=== PATIENT | male | born 1970 | race Caucasian/White ===

== ENCOUNTER 2023-01-06 14:06 | Outpatient (CLI) | payer BC, SELFPAY | END 2023-01-06 14:07 | disposition home or self-care (01) | PROVIDERS: PCP Family Medicine; Visit Provider Family Medicine | DX: E78.5 Hyperlipidemia, unspecified (principal); E66.9 Obesity, unspecified; M54.9 Dorsalgia, unspecified; Z13.1 Encounter for screening for diabetes mellitus; Z12.5 Encounter for screening for malignant neoplasm of prostate | CPT/HCPCS: 80048; 80061; 84153 ==

== ENCOUNTER 2023-01-13 14:08 | Outpatient (CLI) | payer BC, SELFPAY | END 2023-01-13 14:09 | disposition home or self-care (01) | PROVIDERS: PCP Family Medicine; Referring Provider Family Medicine; Visit Provider Family Medicine | DX: R79.89 Other specified abnormal findings of blood chemistry (principal) | CPT/HCPCS: 80048 ==

== ENCOUNTER 2024-11-01 14:04 | Outpatient (CLI) | payer OTHER, SELFPAY | END 2024-11-01 14:05 | disposition home or self-care (01) | PROVIDERS: PCP Family Medicine; Visit Provider Family Medicine | DX: Z00.00 Encounter for general adult medical examination without abnormal findings (principal); E78.2 Mixed hyperlipidemia; Z12.5 Encounter for screening for malignant neoplasm of prostate | CPT/HCPCS: 80048; 80061; G0103 ==